=== PATIENT | male | born 1960 | race Caucasian/White ===

== ENCOUNTER 2023-01-18 08:16 | Emergency (ER) | payer BC, MEDICAID ==
[2023-01-18] MEDS: Ibuprofen 200 MG Tab PO ONE (08:26)
[2023-01-18] MEDS: Take Home: Amoxicillin/Clavulanate K 875-125 MG Tab, 2 Tab Pack PO ONE (09:00)
== END 2023-01-18 09:07 | disposition home or self-care (01) ==
LOC: CC.ED 08:16
DX: H66.91 Otitis media, unspecified, right ear (principal); I10 Essential (primary) hypertension; Z86.16 Personal history of COVID-19
CPT/HCPCS: 99282; 99283; A9270-GY